=== PATIENT | female | born 1995 | race African-American/Black ===

== ENCOUNTER 2019-02-20 21:20 | Emergency (ER) | payer SELFPAY ==
[~2019-02-20] VITALS: Ht 162.6 cm; Wt 141.0 kg
[2019-02-20] MEDS ORDERED: HYDROCODONE/ACETAMINOPHEN 5/325MG TABLET PO ONE (23:00)
[2019-02-20 23:52] VITALS: BP 144/92
== END 2019-02-20 23:53 | disposition home or self-care (01) ==
LOC: ER 21:20
DX: K04.7 Periapical abscess without sinus (principal); F41.9 Anxiety disorder, unspecified; R68.84 Jaw pain; F12.10 Cannabis abuse, uncomplicated
CPT/HCPCS: 93005; 99283

== ENCOUNTER 2019-03-19 23:38 | Emergency (ER) | payer SELFPAY ==
[~2019-03-19] VITALS: Ht 162.6 cm; Wt 125.0 kg
[2019-03-19 23:42] VITALS: BP 147/100
== END 2019-03-20 02:57 | disposition left against medical advice (07) ==
LOC: ER 23:38
DX: Z53.21 Procedure and treatment not carried out due to patient leaving prior to being seen by health care provider (principal)

== ENCOUNTER 2019-03-20 12:40 | Emergency (ER) | payer MEDICAID ==
[~2019-03-20] VITALS: Ht 162.6 cm; Wt 137.0 kg
[2019-03-20] MEDS ORDERED: NITROGLYCERIN 0.4MG TABLET SL SL PRN (15:45)
[2019-03-20] MEDS ORDERED: ASPIRIN 81MG TABLET PO ONE (15:45)
[2019-03-20 15:58] LABS: BASOPHILS % 0.9 % (0.0-2.0); EOSINOPHILS % 1.1 % (0.0-5.0); HEMATOCRIT. 38.9 % (36.0-48.0); HEMOGLOBIN. 12.9 g/dL (12.0-16.0); LYMPHOCYTES % 21.2 % (20.0-50.0); MEAN CORPUSCULAR HEMOGLOBIN 28.5 pg (28.0-32.0); MEAN CORPUSCULAR VOLUME 85.6 fL (81.0-99.0); MEAN PLATELET VOLUME 7.6 fl (7.4-10.4); MONOCYTES % 7.6 % (2.0-8.0); NEUTROPHILS % 69.2 % (40.0-76.0); PLATELET 346 x1000/uL (130-400); RED BLOOD CELL COUNT 4.54 mill/uL (4.2-5.4); RED CELL DISTRIBUTION WIDTH 14.2 % (11.6-14.6)
[2019-03-20 16:00] LABS: CHLORIDE 106 mEq/L (98-107)
[2019-03-20 16:06] LABS: D-DIMER 0.52 mg/L FEU (<0.50); PARTIAL THROMBOPLASTIN TIME 32.1 sec (23.4-31.0)
[2019-03-20] MEDS ORDERED: ASPIRIN 81MG TABLET ONE (16:13)
[2019-03-20] MEDS ORDERED: ACETAMINOPHEN 500MG TABLET PO ONE (21:00)
[2019-03-20] MEDS ORDERED: IOHEXOL-350 100 ML BOTTLE ONE (22:20)
[2019-03-20 22:24] VITALS: BP 128/78
== END 2019-03-20 22:25 | disposition home or self-care (01) ==
LOC: ER 12:40
DX: R07.89 Other chest pain (principal); E66.01 Morbid (severe) obesity due to excess calories; F12.10 Cannabis abuse, uncomplicated; Z68.43 Body mass index [BMI] 50.0-59.9, adult
CPT/HCPCS: 36415; 71045; 71275; 80053; 81025; 83880; 84484; 85025; 85379; 85610; 85730; 93005; 93970; 99284; Q9967; Z7610

== ENCOUNTER 2020-07-09 14:03 | Emergency (ER) | payer BC, MEDICAID ==
[~2020-07-09] VITALS: Ht 162.6 cm; Wt 150.0 kg
[2020-07-09 14:19] VITALS: BP 161/96
== END 2020-07-09 16:05 | disposition left against medical advice (07) ==
LOC: ER 14:03
DX: Z53.21 Procedure and treatment not carried out due to patient leaving prior to being seen by health care provider (principal)